=== PATIENT | male | born 1955 | race Caucasian/White ===

== ENCOUNTER 2020-09-23 09:07 | Emergency (ER) | payer MEDICAID ==
[~2020-09-23] VITALS: Ht 175.3 cm; Wt 84.1 kg
[~2020-09-23 09:07] MED LIST: ASPI81TA44 PO; ATOR10TA PO; OMEG1CAP54 PO; OMEP20TA5 PO
[2020-09-23 09:20] VITALS: BP 137/100
[2020-09-23 09:53] LABS: CLARITY,URINE CLEAR (Clear); COLOR,URINE YELLOW (Yellow); GLUCOSE, URINE NEGATIVE (Neg); KETONES,URINE 15 mg/dl (Neg); LEUKOCYTE ESTERASE ,URINE NEGATIVE (Neg); NITRITES, URINE NEGATIVE (Neg); OCCULT BLOOD,URINE TRACE-INTACT (Neg); PROTEIN,URINE NEGATIVE (Neg); UROBILINOGEN,URINE 0.2 E.U/dL (0.2-1.0)
[2020-09-23 09:55] LABS: UA COLLECTION TYPE VOIDED
[2020-09-23] MEDS ORDERED: ibuprofen 200mg tablet PO ONE (09:55)
[2020-09-23] MEDS ORDERED: acetaminophen 325mg tablet PO ONE (09:55)
[2020-09-23] MEDS ORDERED: ondansetron 4mg rapidly disintigrating tab PO ONE (10:30)
[2020-09-23 10:34] LABS: MUCUS STRANDS MANY /LPF (Neg)
[2020-09-23 10:36] LABS: SQUAMOUS EPITHELIAL CELL,UR FEW /LPF (FEW)
[2020-09-23 10:40] LABS: FINE GRANULAR CAST 0-3 /LPF (NEGATIVE); HYALINE CASTS 0-3 /LPF (NEGATIVE)
[2020-09-23 10:42] LABS: BACTERIA,URINE FEW /HPF (Neg); RBC,URINE 0-2 /HPF (0-2); WBC,URINE 0-4 /HPF (0-4)
[2020-09-23] MEDS ORDERED: LIDOcaine 5% patch TP STA (11:16)
[2020-09-23] MEDS ORDERED: LIDO700A32 TOP (11:22)
[2020-09-23] MEDS ORDERED: CYCL-1 PO (11:22)
== END 2020-09-23 11:36 | disposition home or self-care (01) ==
LOC: ER 09:08
DX: M54.5 Low back pain (principal); K59.00 Constipation, unspecified; R10.84 Generalized abdominal pain; I25.10 Atherosclerotic heart disease of native coronary artery without angina pectoris; I25.2 Old myocardial infarction; J44.9 Chronic obstructive pulmonary disease, unspecified; Z88.8 Allergy status to other drugs, medicaments and biological substances; Z79.82 Long term (current) use of aspirin; Z79.899 Other long term (current) drug therapy
CPT/HCPCS: 72100; 74176; 81001; 99285

== ENCOUNTER 2023-09-27 15:36 | Emergency (ER) | payer MEDICARE, MEDICAID ==
[~2023-09-27] VITALS: Ht 172.7 cm; Wt 95.8 kg
[~2023-09-27 15:36] MED LIST changes: +ALBU6.7H14 INH; -ASPI81TA44 PO; +ASPI81TA53 PO; -ATOR10TA PO; +AZI25OT PO; +BUDE10.22 INH; +LACT1CAP74 PO; +NICO-687 TD; -OMEG1CAP54 PO; -OMEP20TA5 PO; +PANT40TA54 PO; +TICA90TA PO
[2023-09-27 16:23] LABS: BASOPHILS % (AUTO) 0.4 % (0-1); EOSINOPHILS # (AUTO) 0.3 X10'3 (0-0.9); EOSINOPHILS % (AUTO) 2.7 % (0-6); HEMATOCRIT 46.7 % (42.0-52.0); HEMOGLOBIN 15.2 g/dl (14.0-17.9); LYMPHOCYTES # (AUTO) 1.9 X10'3 (1.1-4.8); LYMPHOCYTES % (AUTO) 14.8 % (21-51); MEAN CORPUSCULAR HEMOGLOBIN 29.1 PG (27.0-31.0); MEAN CORPUSCULAR HGB CONC 32.6 g/dL (33.0-36.5); MEAN CORPUSCULAR VOLUME 89.3 FL (78-98); MEAN PLATELET VOLUME 7.3 FL (7.4-10.4); MONOCYTES # (AUTO) 0.7 X10'3 (0-0.9); MONOCYTES % (AUTO) 5.7 % (2-12); NEUTROPHILS # (AUTO) 9.6 X10'3 (1.8-7.7); NEUTROPHILS % (AUTO) 76.4 % (42-75); PLATELET COUNT 325 X10'3 (140-440); RED BLOOD COUNT 5.23 X10'6 (4.70-6.10); WHITE BLOOD COUNT 12.6 X10'3 (4.5-11.0)
[2023-09-27 16:38] LABS: ALBUMIN 3.3 G/DL (3.4-5.0); ANION GAP 11 (8-16); BLOOD UREA NITROGEN 17 MG/DL (7-18); CALCIUM 9.9 MG/DL (8.5-10.1); CHLORIDE 105 MMOL/L (99-107); GLUCOSE 194 MG/DL (70-104); POTASSIUM 3.7 MMOL/L (3.5-5.1); PRO BRAIN NATRIURETIC PEPTIDE < 30 PG/ML (0-125); SODIUM 143 MMOL/L (135-145); eCRCL 70 ML/MIN; eGFR 75 ML/MIN
[2023-09-27] MEDS ORDERED: LEVO-65 PO (22:21)
[2023-09-27] MEDS ORDERED: PRED20TA PO (22:21)
[2023-09-27] MEDS: predniSONE 20 mg tablet PO ONE (22:38)
[2023-09-27] MEDS: levoFLOXACIN 750MG TABLET PO ONE (22:38)
[2023-09-27 22:54] VITALS: BP 137/75; PULSE 95; RESP 18; TEMP 98.4; O2SAT 94
== END 2023-09-27 22:57 | disposition home or self-care (01) ==
LOC: ER 15:37
DX: R05.9 Cough, unspecified (principal); R51.9 Headache, unspecified; J44.9 Chronic obstructive pulmonary disease, unspecified; F17.200 Nicotine dependence, unspecified, uncomplicated; R06.02 Shortness of breath; Z88.5 Allergy status to narcotic agent; Z79.82 Long term (current) use of aspirin; Z79.899 Other long term (current) drug therapy; Z79.2 Long term (current) use of antibiotics
CPT/HCPCS: 36415; 71045; 80048; 83880; 84484; 85025; 93005; 99285; J7512